=== PATIENT | female | born 1985 | race Caucasian/White ===

== ENCOUNTER 2019-09-17 12:11 | Emergency (ER) | payer OTHER ==
[2019-09-17 12:50] VITALS: BP 182/111
--- NOTE | 2019-09-17 13:04 | UC ---
Headache HPI - HPI Summary HPI Summary: sinus and ear pain, does not take her BP med regular d/t "not liking it", - History Of Current Complaint Chief Complaint: UCGeneralIllness Stated Complaint: NAUSEA, FEVER, DIZZINESS, EAR PAIN Time Seen by Provider: 09/17/19 12:48 Hx Obtained From: Patient Hx Last Menstrual Period: 09/17/19 ?: No Onset/Duration: Gradual Onset, Lasting Days, Still Present Pain Intensity: 7 Pain Scale Used: 0-10 Numeric Character: Pressure - sinus and right ear Aggravating Factor(s): Nothing Allevating Factor(s): Nothing Associated Signs And Symptoms: Positive: Nausea - Allergies/Home Medications Allergies/Adverse Reactions: Allergies Allergy/AdvReac Type Severity Reaction Status Date / Time No Known Allergies Allergy Verified 09/17/19 12:42 Home Medications: Home Medications Acetaminophen [Acetaminophen Extra Strength] 1,000 mg PO ONCE PRN 09/17/19 [ History Confirmed 09/17/19] Hydrochlorothiazide TAB* [Hydrodiuril TAB*] 25 mg PO DAILY 09/17/19 [History Confirmed 09/17/19] Labetalol TAB* [Trandate TAB*] 2 tab PO BID 09/17/19 [History Confirmed 09/17/19 ] Loratadine 10 mg PO ONCE PRN 09/17/19 [History Confirmed 09/17/19] PMH/Surg Hx/FS Hx/Imm Hx Previously Healthy: No Cardiovascular History: Hypertension - Surgical History Surgical History: None - Family History Known Family History: Positive: None - Social History Occupation: Employed Part-time - at [employer] Lives: With Family Alcohol Use: Weekly Substance Use Type: None Smoking Status (MU): Never Smoked Tobacco Review of Systems All Other Systems Reviewed And Are Negative: Yes Constitutional: Positive: Negative Skin: Positive: Negative Eyes: Positive: Negative ENT: Positive: Sore Throat, Ear Ache - right, Sinus Congestion, Sinus Pain/ Tenderness Respiratory: Positive: Negative Cardiovascular: Positive: Negative Gastrointestinal: Positive: Negative Genitourinary: Positive: Negative Motor: Positive: Negative Neurovascular: Positive: Negative Musculoskeletal: Positive: Negative Neurological: Positive: Headache - sinus and right ear Psychological: Positive: Negative Is Patient Immunocompromised?: No Physical Exam Triage Information Reviewed: Yes Appearance: Well-Appearing - no acute distress, No Pain Distress, Obese Vital Signs: Initial Vital Signs Temp 97.6 F 11/03/19 12:45 Pulse 67 09/17/19 12:45 Resp 15 09/17/19 12:45 BP 182/111 09/17/19 12:45 Pulse Ox 100 09/17/19 12:45 Vital Signs Reviewed: Yes Eye Exam: Normal Eyes: Positive: Conjunctiva Clear ENT Exam: Normal ENT: Positive: Normal ENT inspection, Hearing grossly normal, Pharynx normal, Nasal congestion, TMs normal, Sinus tenderness, Uvula midline. Negative: Nasal drainage, Tonsillar swelling, Tonsillar exudate, Trismus, Muffled voice, Hoarse voice, Dental tenderness Dental Exam: Other Dental: Positive: Other: - some missing teeth Neck exam: Normal Neck: Positive: Supple, Nontender, No Lymphadenopathy Respiratory Exam: Normal Respiratory: Positive: Chest non-tender, Lungs clear, Normal breath sounds, No respiratory distress, No accessory muscle use Cardiovascular Exam: Normal Cardiovascular: Positive: RRR, No Murmur, Pulses Normal, Brisk Capillary Refill Musculoskeletal Exam: Normal Musculoskeletal: Positive: Strength Intact, ROM Intact, No Edema Neurological Exam: Normal Neurological: Positive: Alert, Muscle Tone Normal Psychological Exam: Normal Skin Exam: Normal Headache Course/Dx - Course Course Of Treatment: patient is non-adherant to medication rx for hypertension. Explicit instructions and education provided regarding early stoke disability and -- -flonase given to patient to follow with pcp Wednesday - Differential Dx/Diagnosis Provider Diagnosis: Hypertension, Morbid obesity, Viral sinusitis Discharge ED - Sign-Out/Discharge Documenting (check all that apply): Patient Departure All imaging exams completed and their final reports reviewed: No Studies - Discharge Plan Condition: Stable Disposition: HOME Prescriptions: Fluticasone NASAL SPRAY 50MCG* [Flonase NASAL SPRAY 50MCG*] 2 spray BOTH NARES DAILY #1 btl Ibuprofen TAB* [Motrin TAB* 800 MG] 800 mg PO Q8H PRN #15 tab PRN Reason: pain Patient Education Materials: Low Fat Diet (ED), Rhinosinusitis (ED), Hypertension (ED), Mediterranean Diet (DC) Referrals: Jennifer Cardoso [Primary Care Provider] - 1 Day - Billing Disposition and Condition Condition: STABLE Disposition: Home
== END 2019-09-17 13:13 | disposition home or self-care (01) ==
LOC: UCCORT 12:11
DX: J32.9 Chronic sinusitis, unspecified (principal); B97.89 Other viral agents as the cause of diseases classified elsewhere; I10 Essential (primary) hypertension; H92.01 Otalgia, right ear; E66.01 Morbid (severe) obesity due to excess calories; R11.0 Nausea; Z79.899 Other long term (current) drug therapy
CPT/HCPCS: 99212; G0463